=== PATIENT | female | born 1980 | race Asian ===

== ENCOUNTER 2022-05-20 12:45 | Emergency (ER) | payer BC ==
[~2022-05-20] VITALS: Ht 157.5 cm; Wt 46.3 kg
[2022-05-20] MEDS ORDERED: LEVO25TA9 PO (13:11)
[2022-05-20 14:25] LABS: HEMATOCRIT 33.9 % (31.2-41.9); MEAN CORPUSCULAR VOLUME 94.2 fL (75.5-95.3); PLATELET COUNT (AUTO) 205 K/uL (179-408)
--- NOTE | 2022-05-20 14:30 | NUR ---
pt seen by MD, resting comfortably in bed, denies chest pain at this time.
[2022-05-20 14:47] LABS: CARBON DIOXIDE 27 mmol/L (21-32); CHLORIDE 105 mmol/L (98-107); CREATININE 0.7 mg/dL (0.6-1.3); GLUCOSE 81 mg/dL (74-106); POTASSIUM 3.5 mmol/L (3.5-5.1); UREA NITROGEN, BLOOD 14 mg/dL (7-18)
[2022-05-20 15:44] VITALS: BP 126/77
--- NOTE | 2022-05-20 15:46 | NUR ---
Patient discharged to home in stable condition. Written and verbal after care instructions given. Patient verbalizes understanding of instructions. Stressed follow up or return to ER for worsening s/s.
== END 2022-05-20 15:30 | disposition home or self-care (01) ==
LOC: ER 12:45
DX: R07.9 Chest pain, unspecified (principal); E03.9 Hypothyroidism, unspecified; Z79.890 Hormone replacement therapy
CPT/HCPCS: 36415; 71045; 84484; 85025; 93005; A4663